=== PATIENT | female | born 1940 | race Caucasian/White ===

== ENCOUNTER 2017-01-25 17:51 | Emergency (ER) | payer MEDICARE, BC ==
--- NOTE | ~2017-01-25 | CR279 ---
[facility] A Service of [facility] RADIOLOGY TEXT RESULTS PATIENT: REMINGTON PERALTA LOCATION: [facility] : 40 UNIT #: [id number] AGE: [address]: Jose C Maldonado MD SEX: F ORDER DR: [id number] [facility] [address] [place], [place] [address] [id number] E MR#: [id number] Acc #: [id number] NAME: REMINGTON PERALTA : 1940 SEX: F STUDY DATE/TIME: 01/25/2017 20:40 UNIT: [facility] ROOM: STUDY DESCRIPTION: CR Wrist 2 View Rt Attending Physician: Jose C Maldonado M.D. Ordering Physician: Jose C Maldonado M.D. Primary Care Physician: Mumtaz Wayne M.D. MEDICAL IMAGING REPORT This report is preliminary unless electronic signature is present EXAM Right wrist 3 views HISTORY Wrist pain and swelling after reduction of the wrist fracture following fall today. FINDINGS 3 views of the right wrist demonstrate a comminuted impacted fracture of the distal radial metaphysis with 5 mm posterior displacement and nearly 35 degrees posterior angulation of the dominant distal radial fracture fragment. The fracture alignment is slightly improved compared to earlier today. Soft tissue swelling about the wrist. Severe degenerative changes of the first CMC joint and at the STT joint. Overlying cast. Dictated by... Amrit Cueva M.D. THIS IS AN ELECTRONICALLY VERIFIED REPORT Amrit Cueva M.D. at 01/25/2017 11:31 PM DFL/pcl TD: 01/25/2017 22:30 JOB #: [id number] MEDICAL IMAGING REPORT Page 1 of 1 COPY
--- NOTE | ~2017-01-25 | CR142 ---
[facility] A Service of [facility] RADIOLOGY TEXT RESULTS PATIENT: REMINGTON PERALTA LOCATION: [facility] : 40 UNIT #: [id number] AGE: [address]: Jose C Maldonado MD SEX: F ORDER DR: [id number] [facility] [address] [place], [place] [address] [id number] E MR#: [id number] Acc #: [id number] NAME: REMINGTON PERALTA : 1940 SEX: F STUDY DATE/TIME: 01/25/2017 18:21 UNIT: [facility] ROOM: STUDY DESCRIPTION: CR Hand Min 3 Views Rt Attending Physician: Jose C Maldonado M.D. Ordering Physician: Tana Bowen P.A.-C. Primary Care Physician: Mumtaz Wayne M.D. MEDICAL IMAGING REPORT This report is preliminary unless electronic signature is present EXAM Right wrist 4 views HISTORY Pain and swelling. Fell today. FINDINGS 4 views are submitted. The examination shows generalized osteopenia. There is a fracture of the distal radius. It is comminuted. It is angulated with the apex directed in a volar fashion and it is slightly impacted. There is an associated fracture of the ulnar styloid. The proximal and distal carpal rows are intact. There is advanced osteoarthritis at the first carpometacarpal articulation. CONCLUSION 1. Comminuted, angulated, and slightly impacted distal radial fracture, associated avulsion fracture of the ulnar styloid. 2. Generalized marked osteopenia. 3. Advanced osteoarthritis of the first carpometacarpal articulation. Dictated by... Pranay Cornelius M.D. THIS IS AN ELECTRONICALLY VERIFIED REPORT Pranay Cornelius M.D. at 01/27/2017 4:42 PM TITO/sandi TD: 01/25/2017 21:51 JOB #: [id number] MEDICAL IMAGING REPORT [facility] A Service [facility] RADIOLOGY TEXT RESULTS PATIENT: REMINGTON PERALTA LOCATION: [facility] : 40 UNIT #: [id number] AGE: [address]: Jose C Maldonado MD SEX: F ORDER DR: Page 1 of 1 COPY
[2017-01-30] MEDS ORDERED: AMLODIPINE BESYL5 MG PO (11:27)
[2017-01-30] MEDS ORDERED: LIPITOR20 MG PO (11:33)
[2017-01-30] MEDS ORDERED: BENAZEPRIL HCL40 MG PO (11:33)
[2017-01-30] MEDS ORDERED: SERTRALINE HCL100 M1 PO (11:34)
[2017-01-30] MEDS ORDERED: ALEVE220 M1 PO (11:36)
[2017-01-30] MEDS ORDERED: MOTRIN IB200 M1 PO (11:37)
[2017-01-31] MEDS ORDERED: NATURAL VITA100 UNIT PO (06:24)
[2017-01-31] MEDS ORDERED: VITAMIN C100 MG PO (06:25)
[2017-01-31] MEDS ORDERED: VITAMIN D400 UNI1 PO (06:25)
== END 2017-01-25 21:35 | disposition home or self-care (01) ==
LOC: CED 17:51 → CFTX 17:51 → CED 18:50
DX: S59.201A Unspecified physeal fracture of lower end of radius, right arm, initial encounter for closed fracture (principal); S52.611A Displaced fracture of right ulna styloid process, initial encounter for closed fracture; I10 Essential (primary) hypertension; Z87.891 Personal history of nicotine dependence; W18.00XA Striking against unspecified object with subsequent fall, initial encounter; Y92.009 Unspecified place in unspecified non-institutional (private) residence as the place of occurrence of the external cause
CPT/HCPCS: 25605; 73100; 73130; 96374; 96375; 99283; J2270; J2405

== ENCOUNTER → 2017-01-30 | Outpatient (CLI) | payer MEDICARE, BC ==
[~2017-01-30] MED LIST: ALEVE220 M1 PO; AMLODIPINE BESYL5 MG PO; BENAZEPRIL HCL40 MG PO; LIPITOR20 MG PO; MOTRIN IB200 M1 PO; NATURAL VITA100 UNIT PO; SERTRALINE HCL100 M1 PO; VITAMIN C100 MG PO; VITAMIN D400 UNI1 PO
--- NOTE | ~2017-01-30 | EKG ---
PATIENT: REMINGTON PERALTA UNIT #: [id number] Ventricular Rate: 61 BPM Atrial Rate: 61 BPM P-R Interval: 174 ms QRS Duration: 68 ms Q-T Interval: 408 ms QTC Calculation(Bezet): 410 ms P [place]: 77 degrees Calculated R [place]: 16 degrees Calculated T [place]: 50 degrees Diagnosis Line: Normal sinus rhythm Diagnosis Line: Normal ECG Diagnosis Line: When compared with ECG of 25-JUN-2015 08:43, Diagnosis Line: No significant change was found Diagnosis Line: Confirmed by MITCH BOND MD ([id number]) on Diagnosis Line: 01/31/2017 1:29:16 PM INTERPRETING MD: RONDA CHÁVEZ
[2017-01-30 11:35] LABS: HEMATOCRIT 32.9 % (35.0-45.0); HEMOGLOBIN 10.3 gm/dL (12.0-16.0); MEAN CORPUSCULAR HEMOGLOBIN 23.9 PG (28-34); MEAN CORPUSCULAR HGB CONC 31.4 g/dL (30-36); MEAN PLATELET VOLUME 8.1 FL (6.5-11.5); RED BLOOD COUNT 4.32 X10e (3.90-5.30); RED CELL DISTRIBUTION WIDTH 19.6 % (11.0-15.5); WHITE BLOOD COUNT 10.2 X10e3 (4.0-10.5)
[2017-01-30 12:10] LABS: BUN/CREATININE RATIO 21.25; CALCIUM SERUM 8.9 mg/dL (8.4-10.2); CREATININE SERUM 0.8 mg/dL (0.6-1.4); GLOM FILT RATE Estimated 71.7 mL/min (>60); POTASSIUM 3.9 mmol/L (3.5-5.1)
== END | disposition home or self-care (01) ==
LOC: CAMB 10:31
PROVIDERS: Orthopaedic Surgery
DX: Z01.818 Encounter for other preprocedural examination (principal)
CPT/HCPCS: 36415; 80048; 85027; 93005

== ENCOUNTER → 2017-01-31 | Day surgery (SDC) | payer MEDICARE, BC ==
--- NOTE | ~2017-01-31 | OR ---
Unit #: [id number] #: [id number] Patient: REMINGTON QUEZADA [id number] [address] [place], [place] [address] [id number] O MR#: [id number] NAME: REMINGTON QUEZADA ROOM: Date of Procedure: 01/31/2017 Admission Date: 01/31/2017 Surgeon: Victoriano Macdonald M.D. : 1940 Attending Physician: Victoriano Macdonald M.D. Primary Care Physician: Mumtaz Wayne M.D. OPERATIVE REPORT PREOPERATIVE DIAGNOSIS Right comminuted intraarticular distal radius fracture. POSTOPERATIVE DIAGNOSIS Right comminuted intraarticular distal radius fracture. PROCEDURE PERFORMED Open reduction and internal fixation of right comminuted intraarticular distal radius fracture involving three or more fragments, [id number]. SECURITY NURSE Pranay De Souza CFA. ANESTHESIA General with LMA. COMPLICATIONS None. SPECIMENS None. DRAINS None. SURGICAL IMPLANTS [employer] Crosslock distal radius plate. INDICATION FOR PROCEDURE Ms. Quezada is a pleasant 76-year-old female, who had fallen onto an outstretched right arm resulting in a comminuted intraarticular distal radius fracture. She was seen in the office and noted to have significant dorsal displacement. Based on pain and amount of displacement, it was felt she would benefit from ORIF. Risks, benefits, and alternatives of surgery were discussed with the patient. She elected to proceed with surgical intervention. Risks include, but are not limited to, infection, bleeding, nerve injury, blood clots, risks associated with anesthesia, need for further surgery, and possibly . DESCRIPTION OF PROCEDURE On 01/31/2017, the patient was seen in preoperative holding area, where her surgical site was marked. Preoperative antibiotics were received. H Unit #: [id number] #: [id number] Patient: REMINGTON QUEZADA P and consent updated. Preoperative block performed. The patient was taken to the operating room and provided general anesthesia. Right upper extremity was prepped and draped in typical sterile fashion. Time-out performed confirming the correct surgical site and procedure. Esmarch used to exsanguinate the arm and tourniquet was inflated to 250 mmHg. At this point, a standard volar approach to the distal radius was performed. Incision was made over the FCR tendon. The tendon was identified and mobilized in an ulnar direction. The pronator quadratus elevated off the fracture. Significant comminution noted. There was a central lunate split with 2 fragments along the volar surface. There was a coronal plane split as well. The fracture was provisionally reduced and retractors were placed. Fluoroscopy brought in to confirm appropriate reduction. At this point, the narrow short plate was chosen and mobilized until it was in appropriate position. Three screws were placed proximally. The first was a cortical screw followed by 2 cross-locking screws. The distal fragments were all captured with unicortical pegs to support the joint surface and captured all the fragments. Once this was complete, fluoroscopy confirmed appropriate reduction of fracture and placement of hardware. Tourniquet released at 20 minutes. Wound thoroughly irrigated. Hemostasis was achieved. Subcutaneous tissue closed with 3-0 Vicryl suture followed by 4-0 Monocryl subcuticular skin stitch. Steri-Strips, 4x4, ABD pad, cast padding, well-padded volar splint were placed. The patient was subsequently awakened from general anesthesia in stable condition and taken to PACU postoperatively. POSTOPERATIVE PLAN The patient will be discharged home. She will follow up in the office in 7 to 10 days. She will work on digit motion. No complications encountered during the surgical procedure. Dictated by... Victoriano Macdonald M.D. LB/anival TD: 02/01/2017 03:10 JOB #: [id number] OPERATIVE REPORT Page 1 of 1 X X PROCEDURE OPERATIVE NOTE
--- NOTE | ~2017-01-31 | CR282 ---
[facility] A Service of [facility] RADIOLOGY TEXT RESULTS PATIENT: REMINGTON PERALTA LOCATION: [facility] : 40 UNIT #: [id number] AGE: [address]: Victoriano Macdonald MD SEX: F ORDER DR: [id number] [facility] [address] [place], [place] [address] [id number] O MR#: [id number] Acc #: [id number] NAME: REMINGTON PERALTA : 1940 SEX: F STUDY DATE/TIME: 01/31/2017 UNIT: [facility] ROOM: STUDY DESCRIPTION: CR Wrist Min 3 View Rt Attending Physician: Victoriano Macdonald M.D. Ordering Physician: Victoriano Macdonald M.D. Primary Care Physician: Mumtaz Wayne M.D. MEDICAL IMAGING REPORT This report is preliminary unless electronic signature is present EXAM Right intraoperative views 01/31/2017 07:22 hours HISTORY 76-year-old woman with wrist fracture for ORIF by Dr. Macdonald. Intraoperative views. Fluoroscopy time 0.12 minutes. COMPARISON 01/25/2017 FINDINGS Submitted for cavitation or 3 intraoperative views demonstrating plate and screw fixation across the distal radial fracture with near anatomic alignment. Angulation has been reduced. The articular surface appears smooth. Osteoarthritis at the first carpometacarpal joint noted. IMPRESSION Intraoperative views demonstrate plate and screw fixation and reduction of the fracture of the distal radius. Dictated by... Winsome Kelley M.D. THIS IS AN ELECTRONICALLY VERIFIED REPORT Winsome Kelley M.D. at 01/31/2017 2:28 PM SMM/stephanie TD: 01/31/2017 10:46 JOB #: [id number] MEDICAL IMAGING REPORT Page 1 of 1 COPY
== END | disposition home or self-care (01) ==
LOC: CSUR 05:44
DX: S52.571A Other intraarticular fracture of lower end of right radius, initial encounter for closed fracture (principal); K21.9 Gastro-esophageal reflux disease without esophagitis; I10 Essential (primary) hypertension; I34.1 Nonrheumatic mitral (valve) prolapse; J44.9 Chronic obstructive pulmonary disease, unspecified; I73.9 Peripheral vascular disease, unspecified; M19.90 Unspecified osteoarthritis, unspecified site; Z95.820 Peripheral vascular angioplasty status with implants and grafts; Z87.891 Personal history of nicotine dependence
CPT/HCPCS: 73110; 76001; C1713; J0690; J1100; J2250; J2405; J2795; J3010